=== PATIENT | male | born 1990 | race Caucasian/White ===

== ENCOUNTER → 2018-03-05 | Outpatient (CLI) | payer SELFPAY ==
[~2018-03-05] MED LIST: Lomotil Tablet1 EACH PO; Norco 5-325 Ta1 EACH PO; PROC10 PO
== END ==
LOC: LAB SHORT 17:00 → LAB EV 17:00
DX: L08.9 Local infection of the skin and subcutaneous tissue, unspecified (principal)
CPT/HCPCS: 87070; 87205

== ENCOUNTER → 2021-12-27 | Outpatient (CLI) | payer BC | END | disposition home or self-care (01) | LOC: LAB SHORT 16:10 | DX: J02.9 Acute pharyngitis, unspecified (principal) | CPT/HCPCS: 87081 ==